=== PATIENT | male | born 1940 | race Caucasian/White ===

== ENCOUNTER 2017-09-12 19:46 | Emergency (ER) | payer MEDICARE, BC ==
[~2017-09-12] VITALS: Ht 182.9 cm; Wt 90.0 kg
[2017-09-12 19:53] VITALS: BP 122/67; PULSE 85; RESP 16; TEMP 98; O2SAT 100
[2017-09-12] MEDS ORDERED: LISI2.5T3 PO (19:58)
[2017-09-12] MEDS ORDERED: LEVO25TA4 PO (19:58)
[2017-09-12] MEDS ORDERED: LIDOCAINE HCL 1% PF 30 ML VIAL INFIL ONE (20:30)
[2017-09-12] MEDS ORDERED: TETANUS/DIPHTHERIA TOXOID ADULT 0.5 ML VIAL IM ONE (20:30)
[2017-09-12] MEDS ORDERED: SODIUM CHLORID 0.9% 500 ML INJ 500 ML IV ONE (20:30)
[2017-09-12 20:43] VITALS: RESP 16; O2SAT 98
--- NOTE | 2017-09-12 21:06 | PD ---
HPI Chief Complaint: Syncope/Near-Syncope Time Seen by Provider: 19:56 Travel History International Travel<30 days: No Contact w/Intl Traveler<30days: No Traveled to known affect area: No History of Present Illness HPI 76-year-old male that presents to the ED for evaluation of syncope. Patient had a syncopal episode today while going into the bathroom. Per patient history feeling dizzy and try to follow to something before he actually passed out. He did hit his eye has had pain. He has an abrasion to the back of his head as well as to his left forehead. Per patient although the pain he has is on the head. He denies any symptoms before this started Feeling dizzy. Per patient he has a history of dizziness in the past and usually is able to resolve on its own. He is usually able to sit down with no issues but this is the first time he is actually lost consciousness. He does not take any blood thinners. Denies any heart history. No allergies to medication. No other medical issues. No urinary or bowel movement issues. No blurry vision or double vision. Per patient his headache is 4 out of 10. Mainly to the back of the head. Patient was brought here by ambulance for evaluation of this. Normal leg pain. He does have an abrasion to his right elbow. PFSH Past Medical History Diminished Hearing: No Hypertension: Yes Thyroid Disease: Yes Tetanus Vaccination: Unknown Influenza Vaccination: No Past Surgical History Surgical History: No Previous Surgery Social History Alcohol Use: Yes ([facility]) Tobacco Use: No Substance Use: No Allergies-Medications (Allergen,Severity, Reaction): Coded Allergies: No Known Allergies (Unverified , 09/12/17) Reported Meds & Prescriptions Reported Meds & Active Scripts Active Reported Lisinopril 2.5 Mg Tab 2.5 Mg PO DAILY Levothyroxine (Levothyroxine Sodium) 25 Mcg Tab 25 Mcg PO DAILY Review of Systems Except as stated in HPI: all other systems reviewed are Neg Physical Exam Narrative GENERAL: SKIN: Warm and dry. Patient has a 1 similar laceration to the left eyebrow area. Patient has a superficial abrasion to the back of the head that has some bleeding from it but otherwise unremarkable. HEAD: Atraumatic. Normocephalic. EYES: Pupils equal and round 4 mms reactive to light and accommodation. No scleral icterus. No injection or drainage. ENT: No nasal bleeding or discharge. Mucous membranes pink and moist. Tongue is midline. No uvula deviation. NECK: Trachea midline. No JVD. CARDIOVASCULAR: Regular rate and rhythm. No murmurs, S3, S4. RESPIRATORY: No accessory muscle use. Clear to auscultation. Breath sounds equal bilaterally. GASTROINTESTINAL: Abdomen soft, non-tender, nondistended. Hepatic and splenic margins not palpable. MUSCULOSKELETAL: Extremities without clubbing, cyanosis, or edema. No obvious deformities. Full range of motion of the upper and lower extremities bilaterally. 2+ pulses bilaterally. Patient does have a very small skin tear to the right elbow with full range of motion of the elbow itself. No obvious bruising or deformity. Patient has no cervical, thoracic, lumbar spine tenderness to palpation. Full range of motion of the legs bilaterally. No obvious discomfort or deformity noted on the legs or arms. NEUROLOGICAL: Awake and alert. No obvious cranial nerve deficits. Motor grossly within normal limits. Five out of 5 muscle strength in the arms and legs. Normal speech. PSYCHIATRIC: Appropriate mood and affect; insight and judgment normal. Data Data Last Documented VS Vital Signs Date Time Temp Pulse Resp B/P (MAP) Pulse Ox O2 Delivery O2 Flow Rate FiO2 09/12/17 21:57 86 16 119/58 (78) 88 16 130/64 (86) 81 18 114/57 (76) 09/12/17 20:43 98 Room Air 09/12/17 19:53 98.0 Orders Orders Electrocardiogram (09/12/17 20:04) Complete Blood Count With Diff (09/12/17 20:04) Comprehensive Metabolic Panel (09/12/17 20:04) Magnesium (Mg) (09/12/17 20:04) Ckmb (Isoenzyme) Profile (09/12/17 20:04) Troponin I (09/12/17 20:04) Act Partial Throm Time (Ptt) (09/12/17 20:04) Prothrombin Time / Inr (Pt) (09/12/17 20:04) Chest, Single Ap (09/12/17 20:04) Ct Brain W/O Iv Contrast(Rout) (09/12/17 20:04) Ecg Monitoring (09/12/17 20:04) Iv Access Insert/Monitor (09/12/17 20:04) Oximetry (09/12/17 20:04) Ct Cerv Spine W/O Contrast (09/12/17 ) Wound Care (09/12/17 20:04) Tetanus/Diphtheria Tox Adult (Tetanus/Di (09/12/17 20:30) Orthostatic Vital Signs (09/12/17 20:16) Sodium Chlorid 0.9% 500 Ml Inj (Ns 500 M (09/12/17 20:30) Lidocaine Pf 1% Inj (Xylocaine-Mpf 1% In (09/12/17 20:30) Acetaminophen (Tylenol) (09/12/17 22:15) Ice/Cold Pack (09/12/17 22:13) Labs Laboratory Tests Test 09/12/17 20:15 Blood Urea Nitrogen 32 MG/DL Creatinine 1.53 MG/DL Random Glucose 87 MG/DL Total Protein 7.2 GM/DL Albumin 3.9 GM/DL Calcium Level 8.9 MG/DL Magnesium Level 2.2 MG/DL Alkaline Phosphatase 56 U/L Aspartate Amino Transf (AST/SGOT) 17 U/L Alanine Aminotransferase (ALT/SGPT) 23 U/L Total Bilirubin 0.5 MG/DL Sodium Level 137 MEQ/L Potassium Level 4.1 MEQ/L Chloride Level 102 MEQ/L Carbon Dioxide Level 24.7 MEQ/L Anion Gap 10 MEQ/L Estimat Glomerular Filtration Rate 45 ML/MIN Total Creatine Kinase 89 U/L Troponin I LESS THAN 0.02 NG/ML MDM Medical Decision Making Medical Screen Exam Complete: Yes Emergency Medical Condition: Yes Medical Record Reviewed: Yes Interpretation(s) CBC & BMP Diagram 09/12/17 20:15 Total Protein 7.2, Albumin 3.9, Calcium Level 8.9, Magnesium Level 2.2, Alkaline Phosphatase 56, Aspartate Amino Transf (AST/SGOT) 17, Alanine Aminotransferase (ALT/SGPT) 23, Total Bilirubin 0.[address] 09/12/172003 Signed Impressions: Service Date/Time: August 21:04 - CONCLUSION: 1. No acute intracranial abnormalities. Ronald Padilla MD Chest X-Ray 09/12/172003 Signed Impressions: Service Date/Time: August 20:11 - CONCLUSION: No acute disease. Ronald Padilla MD Cervical Spine CT 09/12/17 Signed Impressions: Service Date/Time: August 21:04 - CONCLUSION: 1. No acute findings. Moderate degenerative change. No significant central bony canal stenosis Ronald Padilla MD Differential Diagnosis Head injury versus syncope versus contusion versus fall versus cardiac syncope versus normal exam Narrative Course 76-year-old male that presents to the ED for evaluation of syncope. Patient was properly examined and was found to have signs and symptoms consistent with syncope. Unclear etiology at this time. Labs and imaging ordered. I do recommend suturing. Patient was given tetanus booster. After explained procedure to the patient and she agreed to it laceration on the forehead was repaired as stated in procedure note. labs and imaging still pending at the writing of this note. Case will be signed out to my attending pending disposition. Procedures Procedure Narrative LACERATION LOCATION: left forehead/eyebrow, occipital abrasion LENGTH: 1 cm NUMBER OF STITCHES/MARA: 2 sutures on forehead, 1 to the occipital scalp REPAIR: The area of the laceration was prepped with Betadine and sterilely draped. The laceration was infiltrated with 1% Xylocaine. The wound was copiously irrigated and explored without evidence of foreign body, tendon injury or neurovascular injury. The wound was closed using 4-0 Ethilone. This was a 1 layer repair. A sterile dressing was applied. The patient was advised to keep the dressing clean and dry. Patient tolerated the procedure well. Diagnosis Primary Impression: Syncope Qualified Codes: R55 - Syncope and collapse Additional Impressions: Head injury, acute Qualified Codes: S09.90XA - Unspecified injury of head, initial encounter Eyebrow laceration Qualified Codes: S01.112A - Laceration without foreign body of left eyelid and periocular area, initial encounter He De Los Santos Sep 12, 2017 21:06
[2017-09-12 21:09] LABS: ALBUMIN 3.9 GM/DL (3.4-5.0); AST (GOT) 17 U/L (15-37); BICARBONATE 24.7 MEQ/L (21.0-32.0); BLOOD UREA NITROGEN 32 MG/DL (7-18); CALCIUM 8.9 MG/DL (8.5-10.1); CHLORIDE 102 MEQ/L (98-107); CREATININE 1.53 MG/DL (0.60-1.30); GLOMERULAR FILTRATION RATE 45 ML/MIN (>89); GLUCOSE,RANDOM 87 MG/DL (74-106); MAGNESIUM 2.2 MG/DL (1.5-2.5); SODIUM (NA) 137 MEQ/L (136-145)
[2017-09-12 21:10] LABS: ALT (GPT) 23 U/L (12-78)
[2017-09-12 21:14] LABS: ALKALINE PHOSPHATASE 56 U/L (45-117); TOTAL BILIRUBIN ADULT 0.5 MG/DL (0.2-1.0); TOTAL PROTEIN 7.2 GM/DL (6.4-8.2); TROPONIN I LESS THAN 0.02 NG/ML (0.02-0.05)
--- NOTE | 2017-09-12 21:23 | RADRPT ---
EXAM DATE/TIME: 09/12/2017 21:04 [facility] COMPARISON: No previous studies available for comparison. INDICATIONS : TRauma, patient fell, dizziness. Laceration back of head. RADIATION DOSE: 37.32 CTDIvol (mGy) MEDICAL HISTORY : None SURGICAL HISTORY : None. ENCOUNTER: Initial ACUITY: 1 day PAIN SCALE: 5/10 LOCATION: cranial TECHNIQUE: Multiple contiguous axial images were obtained of the head. Using automated exposure control and adj ustment of the mA and/or kV according to patient size, radiation dose was kept as low as reasonably a chievable to obtain optimal diagnostic quality images. DICOM format image data is available electro nically for review and comparison. FINDINGS: CEREBRUM: The ventricles are normal for age. No evidence of midline shift, mass lesion, hemorrhage or acute in farction. No extra-axial fluid collections are seen. POSTERIOR FOSSA: The cerebellum and brainstem are intact. The 4th ventricle is midline. The cerebellopontine angle i s unremarkable. EXTRACRANIAL: The visualized portion of the orbits is intact. SKULL: The calvaria is intact. No evidence of skull fracture. CONCLUSION: 1. No acute intracranial abnormalities. Ronald Padilla MD on September 12, 2017 at 21:19 Board Certified Radiologist. This report was verified electronically.
--- NOTE | 2017-09-12 21:25 | RADRPT ---
EXAM DATE/TIME: 09/12/2017 21:04 [facility] COMPARISON: No previous studies available for comparison. INDICATIONS : TRauma, patient fell, neck pain. RADIATION DOSE: 15.62 CTDIvol (mGy) MEDICAL HISTORY : None SURGICAL HISTORY : None. ENCOUNTER: Initial ACUITY: 1 day PAIN SCALE: 5/10 LOCATION: neck TECHNIQUE: Volumetric scanning of the cervical spine was performed. Multiplanar reconstructions in the sagittal, coronal and oblique axial planes were performed. Using automated exposure control and adjustment o f the mA and/or kV according to patient size, radiation dose was kept as low as reasonably achievable to obtain optimal diagnostic quality images. DICOM format image data is available electronically f or review and comparison. FINDINGS: No acute fracture or spondylolisthesis. No prevertebral soft tissue swelling. Moderate facet arthropa thy. Moderate degenerative disc disease. CONCLUSION: 1. No acute findings. Moderate degenerative change. No significant central bony canal stenosis Ronald Padilla MD on September 12, 2017 at 21:20 Board Certified Radiologist. This report was verified electronically.
--- NOTE | 2017-09-12 21:31 | RADRPT ---
EXAM DATE/TIME: 09/12/2017 20:11 [facility] COMPARISON: No previous studies available for comparison. INDICATIONS : Palpitations MEDICAL HISTORY : None. SURGICAL HISTORY : None. ENCOUNTER: Initial ACUITY: 1 day PAIN SCORE: 0/10 LOCATION: chest FINDINGS: A single view of the chest demonstrates the lungs to be symmetrically aerated without evidence of mas s, infiltrate or effusion. The cardiomediastinal contours are unremarkable. Osseous structures are intact. CONCLUSION: No acute disease. Ronald Padilla MD on September 12, 2017 at 21:27 Board Certified Radiologist. This report was verified electronically.
[2017-09-12 21:57] VITALS: BP_SYST 114; BP_SYST 119; BP_SYST 130; BP_DIAS 57; BP_DIAS 58; BP_DIAS 64; RESP 16; RESP 18
[2017-09-12] MEDS ORDERED: ACETAMINOPHEN 325 MG TAB PO ONE (22:15)
[2017-09-13 01:53] LABS: AUTOMATED NEUTROPHIL # 3.6 TH/MM3 (1.8-7.7); BASOPHIL % 0.8 % (0.0-2.0); EOSINOPHIL % 0.8 % (0.0-4.0); HEMATOCRIT 41.3 % (39.0-51.0); HEMOGLOBIN 14.2 GM/DL (13.0-17.0); LYMPH % 23.6 % (9.0-44.0); LYMPHOCYTE # 1.4 TH/MM3 (1.0-4.8); MEAN CELL VOLUME 92.8 FL (80.0-100.0); MEAN CORPUSCULAR HEMOGLOBIN 31.9 PG (27.0-34.0); MEAN CORPUSCULAR HGB CONC 34.4 % (32.0-36.0); MEAN PLATELET VOLUME 8.7 FL (7.0-11.0); MONO % 15.1 % (0.0-8.0); MONOCYTE # 0.9 TH/MM3 (0-0.9); NEUT % 59.7 % (16.0-70.0); PLATELET COUNT 181 TH/MM3 (150-450); RED BLOOD COUNT 4.45 MIL/MM3 (4.50-5.90); RED CELL DISTRIBUTION WIDTH 13.4 % (11.6-17.2); WHITE BLOOD COUNT 5.9 TH/MM3 (4.0-11.0)
[2017-09-13 02:01] LABS: INTERNATIONAL NORMALIZED RATIO 1.1 RATIO; PROTHROMBIN TIME - PATIENT 10.7 SEC (9.8-11.6)
--- NOTE | 2017-09-13 02:23 | PD ---
Physical Exam Date Seen by Provider: Sep 13, 2017 Narrative Patient was initially evaluated by Carlos De Los Santos PA-C for syncope. Patient states that he had gotten up to go to the bathroom when he got very lightheaded and fell striking the left periorbital region on a countertop. He states that he has had no chest pain, shortness of breath or palpitations. He states that he has had previous near syncopal episodes but never syncope. The patient has been in our emergency department for over 6 hours and has felt well the entire time. He would like to go home. Data Data Last Documented VS Vital Signs Date Time Temp Pulse Resp B/P (MAP) Pulse Ox O2 Delivery O2 Flow Rate FiO2 09/12/17 21:57 86 16 119/58 (78) 88 16 130/64 (86) 81 18 114/57 (76) 09/12/17 20:43 98 Room Air 09/12/17 19:53 98.0 Orders Orders Electrocardiogram (09/12/17 20:04) Complete Blood Count With Diff (09/12/17 20:04) Comprehensive Metabolic Panel (09/12/17 20:04) Magnesium (Mg) (09/12/17 20:04) Ckmb (Isoenzyme) Profile (09/12/17 20:04) Troponin I (09/12/17 20:04) Act Partial Throm Time (Ptt) (09/12/17 20:04) Prothrombin Time / Inr (Pt) (09/12/17 20:04) Chest, Single Ap (09/12/17 20:04) Ct Brain W/O Iv Contrast(Rout) (09/12/17 20:04) Ecg Monitoring (09/12/17 20:04) Iv Access Insert/Monitor (09/12/17 20:04) Oximetry (09/12/17 20:04) Ct Cerv Spine W/O Contrast (09/12/17 ) Wound Care (09/12/17 20:04) Tetanus/Diphtheria Tox Adult (Tetanus/Di (09/12/17 20:30) Orthostatic Vital Signs (09/12/17 20:16) Sodium Chlorid 0.9% 500 Ml Inj (Ns 500 M (09/12/17 20:30) Lidocaine Pf 1% Inj (Xylocaine-Mpf 1% In (09/12/17 20:30) Acetaminophen (Tylenol) (09/12/17 22:15) Ice/Cold Pack (09/12/17 22:13) Labs Laboratory Tests Test 09/12/17 20:15 09/13/17 01:40 Blood Urea Nitrogen 32 MG/DL Creatinine 1.53 MG/DL Random Glucose 87 MG/DL Total Protein 7.2 GM/DL Albumin 3.9 GM/DL Calcium Level 8.9 MG/DL Magnesium Level 2.2 MG/DL Alkaline Phosphatase 56 U/L Aspartate Amino Transf (AST/SGOT) 17 U/L Alanine Aminotransferase (ALT/SGPT) 23 U/L Total Bilirubin 0.5 MG/DL Sodium Level 137 MEQ/L Potassium Level 4.1 MEQ/L Chloride Level 102 MEQ/L Carbon Dioxide Level 24.7 MEQ/L Anion Gap 10 MEQ/L Estimat Glomerular Filtration Rate 45 ML/MIN Total Creatine Kinase 89 U/L Troponin I LESS THAN 0.02 NG/ML White Blood Count 5.9 TH/MM3 Red Blood Count 4.45 MIL/MM3 Hemoglobin 14.2 GM/DL Hematocrit 41.3 % Mean Corpuscular Volume 92.8 FL Mean Corpuscular Hemoglobin 31.9 PG Mean Corpuscular Hemoglobin Concent 34.4 % Red Cell Distribution Width 13.4 % Platelet Count 181 TH/MM3 Mean Platelet Volume 8.7 FL Neutrophils (%) (Auto) 59.7 % Lymphocytes (%) (Auto) 23.6 % Monocytes (%) (Auto) 15.1 % Eosinophils (%) (Auto) 0.8 % Basophils (%) (Auto) 0.8 % Neutrophils # (Auto) 3.6 TH/MM3 Lymphocytes # (Auto) 1.4 TH/MM3 Monocytes # (Auto) 0.9 TH/MM3 Eosinophils # (Auto) 0.0 TH/MM3 Basophils # (Auto) 0.0 TH/MM3 CBC Comment DIFF FINAL Differential Comment Prothrombin Time 10.7 SEC Prothromb Time International Ratio 1.1 RATIO Activated Partial Thromboplast Time 24.3 SEC MDM Supervised Visit with DELISA: Yes Narrative Course I, Dr. mae, have reviewed the advance practice practitioner's documentation and am in agreement, met with the patient face to face, made the diagnosis, and the medical decision making was done by me. *My assessment and Findings: Awake and alert and fully oriented. Vital Signs Date Time Temp Pulse Resp B/P (MAP) Pulse Ox O2 Delivery O2 Flow Rate FiO2 09/12/17 21:57 86 16 119/58 (78) 88 16 130/64 (86) 81 18 114/57 (76) 09/12/17 20:43 16 98 Room Air 09/12/17 19:53 98.0 85 16 122/67 (85) 100 BMP Diagram 09/12/17 20:15 Total Protein 7.2, Albumin 3.9, Calcium Level 8.9, Magnesium Level 2.2, Alkaline Phosphatase 56, Aspartate Amino Transf (AST/SGOT) 17, Alanine Aminotransferase (ALT/SGPT) 23, Total Bilirubin 0.5 trop < 0.02 CBC Diagram 09/13/17 01:[address] 09/12/172003 Signed Impressions: Service Date/Time: August 21:04 - CONCLUSION: 1. No acute intracranial abnormalities. Ronald Padilla MD Chest X-Ray 09/12/172003 Signed Impressions: Service Date/Time: August 20:11 - CONCLUSION: No acute disease. Ronald Padilla MD Cervical Spine CT 09/12/17 Signed Impressions: Service Date/Time: August 21:04 - CONCLUSION: 1. No acute findings. Moderate degenerative change. No significant central bony canal stenosis Ronald Padilla MD This patient presented following syncope. He wants to go home. I feel that the patient has been adequately observed in the emergency department as he has been here for more than 6 hours now. I will allow him to leave. Diagnosis Primary Impression: Syncope Qualified Codes: R55 - Syncope and collapse Additional Impressions: Head injury, acute Qualified Codes: S09.90XA - Unspecified injury of head, initial encounter Eyebrow laceration Qualified Codes: S01.112A - Laceration without foreign body of left eyelid and periocular area, initial encounter Additional Instruction: Clean the wound twice daily with soap and water. Apply a thin layer of Neosporin ointment after you wash it. See your doctor in 7 days for suture removal. Seek care sooner for redness, drainage, warmth, unusual pain. Please follow-up with your doctor at home regarding the syncopal episode. Disposition: DISCHARGE HOME Condition: Stable Margarita Taylor MD Sep 13, 2017 02:23
--- NOTE | 2017-09-13 19:20 | EKG ---
Date Performed: 09/12/2017 Time Performed: 19:56:10 PTAGE: 76 years EKG: Sinus rhythm WITH MARKED SINUS ARRHYTHMIA BORDERLINE ECG NO PREVIOUS TRACING DOCTOR: Ajay Archer Interpretating Date/Time 09/13/2017 19:16:13
== END 2017-09-13 02:38 | disposition home or self-care (01) ==
LOC: NEPE 19:46
DX: R55 Syncope and collapse (principal); S01.112A Laceration without foreign body of left eyelid and periocular area, initial encounter; S50.311A Abrasion of right elbow, initial encounter; I10 Essential (primary) hypertension; W19.XXXA Unspecified fall, initial encounter; Z23 Encounter for immunization
CPT/HCPCS: 12011; 70450; 71045; 72125; 80053; 82550; 83735; 84484; 85025; 85610; 85730; 90471; 90714; 93005; 96360; 96361; 99285; J7040